=== PATIENT | female | born 2000 | race Caucasian/White ===

== ENCOUNTER 2023-01-31 09:53 | Emergency (ER) | payer MEDICAID ==
[~2023-01-31] VITALS: Ht 175.3 cm; Wt 60.0 kg
[2023-01-31 09:58] VITALS: BP 109/70; PULSE 94; RESP 18; TEMP 98; O2SAT 98
== END 2023-01-31 10:48 | disposition left against medical advice (07) ==
LOC: ER 09:54
DX: M79.10 Myalgia, unspecified site (principal); Z53.21 Procedure and treatment not carried out due to patient leaving prior to being seen by health care provider
CPT/HCPCS: 99281